=== PATIENT | female | born 1985 | race Caucasian/White ===

== ENCOUNTER 2017-06-10 13:17 | Emergency (ER) | payer MEDICAID, OTHER ==
[~2017-06-10] VITALS: Ht 147.3 cm; Wt 68.0 kg
[2017-06-10 14:02] VITALS: BP 136/82
== END 2017-06-10 16:17 | disposition home or self-care (01) ==
LOC: ER 14:07
DX: B34.9 Viral infection, unspecified (principal); J40 Bronchitis, not specified as acute or chronic; F17.200 Nicotine dependence, unspecified, uncomplicated
CPT/HCPCS: 99283

== ENCOUNTER 2025-03-26 06:23 | Emergency (ER) | payer MEDICAID ==
[~2025-03-26] VITALS: Ht 149.9 cm; Wt 90.0 kg
[~2025-03-26 06:23] MED LIST: AMLO10TA80 MT
[2025-03-26 06:27] VITALS: BP 120/80; PULSE 93; RESP 16; TEMP 36.8; O2SAT 99
[2025-03-26] MEDS ORDERED: ONDANSETRON HCL 4MG/2ML INJ IV ONE (07:00)
[2025-03-26] MEDS ORDERED: MORPHINE SULFATE 4 MG/ML INJ (FOR IV/IM USE) IV ONE (07:00)
== END 2025-03-26 08:22 | disposition left against medical advice (07) ==
LOC: ER 06:23 → CMPBEDREQ 03-27 08:01
DX: R10.30 Lower abdominal pain, unspecified (principal); R11.0 Nausea; I10 Essential (primary) hypertension; J45.909 Unspecified asthma, uncomplicated
CPT/HCPCS: 99283

== ENCOUNTER 2025-03-26 19:56 | Inpatient (IN) | payer MEDICAID ==
[~2025-03-26] VITALS: Ht 154.9 cm; Wt 89.8 kg
[2025-03-26 20:00] VITALS: O2SAT 98
[2025-03-26 20:33] LABS: BASOPHILS % 0.2 % (0.0-2.0); EOSINOPHILS % 0.3 % (0.0-5.0); HEMATOCRIT. 38.6 % (36.0-48.0); HEMOGLOBIN. 12.6 g/dL (12.0-16.0); LYMPHOCYTES % 7.1 % (20.0-50.0); MEAN PLATELET VOLUME 7.8 fl (7.4-10.4); MONOCYTES % 5.3 % (2.0-8.0); NEUTROPHILS % 87.1 % (40.0-76.0); PLATELET 346 x1000/uL (130-400); RED BLOOD CELL COUNT 4.52 mill/uL (4.2-5.4); RED CELL DISTRIBUTION WIDTH 15.0 % (11.6-14.6)
[2025-03-26 20:49] LABS: CREATININE 0.7 mg/dL (0.6-1.0); UREA NITROGEN BLOOD 6 mg/dL (9-23)
[2025-03-26] MEDS: SODIUM CHLORIDE 0.9% 1,000 ML IV ONE (21:15)
[2025-03-26] MEDS: SODIUM CHLORIDE 0.9% (SEPSIS BOLUS) IV ONE (22:23)
[2025-03-26] MEDS: ONDANSETRON HCL 4MG/2ML INJ IV ONE (22:23)
[2025-03-26] MEDS: PIPERACILLIN/TAZO 3.375G/50ML 50 ML IV ONE (22:23)
[2025-03-26 22:36] LABS: INR 1.1
[2025-03-26 22:47] LABS: CREATININE 0.8 mg/dL (0.6-1.0); UREA NITROGEN BLOOD 8 mg/dL (9-23)
[2025-03-26 22:48] LABS: TROPONIN I HIGH SENSITIVITY < 4 ng/L (3.0-34)
[2025-03-26 22:49] LABS: ASPARTATE AMINOTRANSFERASE 15 IU/L (<34); BILIRUBIN DIRECT 0.3 mg/dL (<=3.0)
[2025-03-26 22:50] LABS: BILIRUBIN TOTAL 1.0 mg/dL (0.1-1.0); PROTEIN TOTAL 8.1 g/dL (6.0-8.3)
[2025-03-26 23:19] LABS: BG DEOXYHEMOGLOBIN 45.7 % (0.0-5.0)
[2025-03-26] MEDS: MORPHINE SULFATE 4 MG/ML INJ (FOR IV/IM USE) IV ONE (23:26)
[2025-03-26] MEDS: VANCOMYCIN 1G PREMIX 200 ML IV ONE (23:32)
[2025-03-27 00:33] LABS: TROPONIN I HIGH SENSITIVITY < 4 ng/L (3.0-34)
[2025-03-27 00:51] LABS: HCG SCREEN NEGATIVE
[2025-03-27] MEDS: KETOROLAC 15MG/ML VIAL IV ONE (01:40)
[2025-03-27] MEDS: ACETAMINOPHEN 1000MG/100ML 100 ML IV ONE (01:48)
[2025-03-27] MEDS: IOHEXOL-300 100 ML BOTTLE ONE (03:27)
[2025-03-27 15:48] VITALS: BP 115/73; PULSE 99; RESP 18; TEMP 37.53
[2025-03-27 16:00] VITALS: BP 113/73; PULSE 99; RESP 19; TEMP 37.5; O2SAT 96
[2025-03-27] MEDS ORDERED: NALOXONE HCL 0.4MG/ML VIAL IV PRN (17:45)
[2025-03-27] MEDS: HYDROCODONE/ACETAMINOPHEN 10/325MG TABLET PO PRN (17:58)
[2025-03-27 20:00] VITALS: BP 111/70; PULSE 100; RESP 20; TEMP 36.7; O2SAT 98
[2025-03-27] MEDS: CEFTRIAXONE 1GM/50ML 50 ML IV SCH (20:26)
[2025-03-27] MEDS: METRONIDAZOLE 500 MG PREMIX 100 ML IV SCH (20:26)
[2025-03-27] MEDS ORDERED: DOXYCYCLINE HYCLATE 100 MG/VIAL IV SCH (21:00)
[2025-03-27] MEDS: DOXYCYCLINE 100MG/100ML 100 ML IV SCH (22:48)
[2025-03-28] VITALS: BP 116/71; PULSE 100; RESP 20; TEMP 36.7; O2SAT 98
[2025-03-28 04:00] VITALS: BP 113/70; PULSE 98; RESP 18; TEMP 36.7; O2SAT 98
[2025-03-28 08:00] VITALS: PULSE 90; RESP 18; TEMP 36.4; O2SAT 98
[2025-03-28] MEDS: ENOXAPARIN 30MG/0.3ML SYR SUBCUT SCH (09:00)
[2025-03-28 12:00] VITALS: BP 122/73; PULSE 89; RESP 19; TEMP 35.8; O2SAT 96
[2025-03-28 16:00] VITALS: BP 136/75; PULSE 90; RESP 19; TEMP 36.2; O2SAT 98
[2025-03-29 08:00] VITALS: BP 125/68; PULSE 95; RESP 17; TEMP 36.8; O2SAT 96
[2025-03-29 16:00] VITALS: BP 125/68; PULSE 95; RESP 17; TEMP 36.8; O2SAT 95
[2025-03-29 20:00] VITALS: BP 120/70; PULSE 88; RESP 19; TEMP 36.6; O2SAT 96
[2025-03-30] VITALS: BP 119/72; PULSE 102; RESP 19; TEMP 36.6; O2SAT 96
[2025-03-30] MEDS: ONDANSETRON HCL 4MG/2ML INJ IV PRN (00:18)
[2025-03-30 04:00] VITALS: BP 127/74; PULSE 97; RESP 20; TEMP 36.1; O2SAT 99
[2025-03-30 08:00] VITALS: BP 126/75; PULSE 87; RESP 18; TEMP 36.4; O2SAT 100
[2025-03-30 12:00] VITALS: BP 139/77; PULSE 87; RESP 18; TEMP 36.5; O2SAT 100
[2025-03-30 16:00] VITALS: BP 116/78; PULSE 94; RESP 18; TEMP 36.8; O2SAT 100
[2025-03-30 20:00] VITALS: BP 115/76; PULSE 91; RESP 20; TEMP 36.5; O2SAT 95
[2025-03-31] VITALS: BP 117/67; PULSE 94; RESP 20; TEMP 36.9; O2SAT 96
[2025-03-31 04:00] VITALS: BP 129/79; PULSE 86; RESP 20; TEMP 36.5; O2SAT 97
[2025-03-31 08:00] VITALS: BP 112/65; PULSE 89; RESP 18; TEMP 36.3; O2SAT 97
[2025-03-31 08:37] LABS: BASOPHILS % 0.3 % (0.0-2.0); EOSINOPHILS % 3.5 % (0.0-5.0); HEMATOCRIT. 31.6 % (36.0-48.0); HEMOGLOBIN. 10.5 g/dL (12.0-16.0); LYMPHOCYTES % 9.4 % (20.0-50.0); MEAN PLATELET VOLUME 7.7 fl (7.4-10.4); MONOCYTES % 8.5 % (2.0-8.0); NEUTROPHILS % 78.3 % (40.0-76.0); PLATELET 316 x1000/uL (130-400); RED BLOOD CELL COUNT 3.71 mill/uL (4.2-5.4); RED CELL DISTRIBUTION WIDTH 14.8 % (11.6-14.6)
[2025-03-31 11:48] VITALS: BP 112/65; PULSE 89; RESP 18; TEMP 97.4
[2025-03-31 12:00] VITALS: BP 128/82; PULSE 89; RESP 18; TEMP 36.7; O2SAT 96
[2025-03-31] MEDS ORDERED: DOXY-461 MT (12:35)
[2025-03-31] MEDS ORDERED: METR-167 MT (12:36)
[2025-03-31] MEDS ORDERED: IBUPROFEN 600MG TABLET PO PRN (16:15)
[2025-03-31] MEDS ORDERED: DOXYCYCLINE HYCLATE 100MG CAPSULE PO SCH (21:00)
[2025-03-31] MEDS ORDERED: METRONIDAZOLE 500MG TABLET PO SCH (21:00)
== END 2025-03-31 19:31 | disposition left against medical advice (07) | DRG 720 ==
LOC: ER 19:56 → 7EST 03-27 00:22 → EDBEDREQTM 03-27 00:56 → EDBEDREQDT 03-27 00:56 → EDBEDREQ 03-27 00:56 → ENRESERV 03-27 14:51
PROVIDERS: ADMIT Internal Medicine; ATTEND Internal Medicine
DX: A41.9 Sepsis, unspecified organism (principal); E66.812 Obesity, class 2; N70.93 Salpingitis and oophoritis, unspecified; I10 Essential (primary) hypertension; F15.90 Other stimulant use, unspecified, uncomplicated; F17.210 Nicotine dependence, cigarettes, uncomplicated; J45.909 Unspecified asthma, uncomplicated; Z53.29 Procedure and treatment not carried out because of patient's decision for other reasons; N13.30 Unspecified hydronephrosis; Z79.899 Other long term (current) drug therapy; Z68.37 Body mass index [BMI] 37.0-37.9, adult
CPT/HCPCS: 36415; 71045; 74177; 76856; 80048; 80076; 82375; 82803; 83605; 83735; 84145; 84484; 84703; 85025; 94618; 99291; A4606; J0696; J1650; J1885; J2270; J2405; J2543; J3373; J3490; J7030; Q9967; J0131